=== PATIENT | female | born 1985 | race African-American/Black ===

== ENCOUNTER 2017-10-24 04:25 | Emergency (ER) | payer OTHER, MEDICAID | END 2017-10-24 05:08 | disposition home or self-care (01) | LOC: D.ER 04:25 | DX: S61.211A Laceration without foreign body of left index finger without damage to nail, initial encounter (principal); W26.0XXA Contact with knife, initial encounter; Y93.89 Activity, other specified; Y92.89 Other specified places as the place of occurrence of the external cause; E11.9 Type 2 diabetes mellitus without complications; N18.3 Chronic kidney disease, stage 3 (moderate) ==